=== PATIENT | male | born 1970 | race Caucasian/White ===

== ENCOUNTER 2021-08-29 10:19 | Outpatient (CLI) | payer OTHER, SELFPAY ==
--- NOTE | ~2021-08-29 | XR_ITS ---
XR shoulder RT min 2V DATE: 08/29/2021 10:45 INDICATION: Right shoulder pain. No new injury. TECHNIQUE: 3 views COMPARISON: 09/25/2013 right shoulder FINDINGS: Again noted is a plate and screws along the right humeral shaft, present on 09/25/2013. No fracture or dislocation is detected. Normal alignment at the right acromioclavicular and glenohume ral joints. No abnormal soft tissue calcification is detected. IMPRESSION: No recent fracture or dislocation or bone destruction or abnormal soft tissue calcificati on Plate and screws again noted is a long humeral shaft Reviewed, dictated and finalized at location A. IMPRESSION: No recent fracture or dislocation or bone destruction or abnormal s oft tissue calcification Plate and screws again noted is a long humeral shaft
== END 2021-08-29 10:20 | disposition home or self-care (01) ==
PROVIDERS: PCP Internal Medicine; Visit Provider Orthopaedic Surgery
DX: M25.511 Pain in right shoulder (principal)
CPT/HCPCS: 73030

== ENCOUNTER → 2021-12-23 02:52 | Outpatient (CLI) | payer OTHER, SELFPAY ==
[2021-12-23 13:23] LABS: Influenza A QL RT-PCR Negative (Negative); Influenza B QL RT-PCR Negative (Negative); SARS-CoV-2 RNA PCR Negative
== END ==
PROVIDERS: PCP Internal Medicine; Visit Provider Nurse Practitioner
DX: R68.89 Other general symptoms and signs (principal); Z20.822 Contact with and (suspected) exposure to COVID-19
CPT/HCPCS: 87502; C9803; U0003; U0005

== ENCOUNTER 2023-02-19 10:52 | Day surgery (SDC) | payer OTHER, SELFPAY ==
[2023-02-05 13:55] VITALS: BMI 27.8
[2023-02-19 11:15] VITALS: BP 100/78; PULSE 74; RESP 20; TEMP 36.8; O2SAT 100
--- NOTE | 2023-02-19 11:23 | PM.HPGS ---
History of Present Illness History of Present Illness Consent: Risks, benefits, and alternatives have been discussed and questions answered. Patient agrees to proceed with procedure. Chief complaint: Neoplasm Screening Narrative: Noe Wilkinson is a 52 year old male here for first screening colonoscopy Review of Systems Constitutional: Constitutional: Denies headache(s) and Denies weakness Eyes: Eyes: Denies blurry vision ENT: Reports Normal hearing present, Denies headache(s) and Denies neck pain Cardiovascular: Cardiovascular: Denies chest pain and Denies dyspnea Respiratory: Respiratory: Denies dyspnea Gastrointestinal: Gastrointestinal: Reports no additional gastrointestinal complaints Genitourinary: Genitourinary: Denies dysuria Musculoskeletal: Musculoskeletal: Denies neck pain Integumentary/Breasts: Skin/Breast: Denies dry skin Neurologic: Reports Normal hearing present, Denies headache(s) and Denies weakness Psychiatric: Psychiatric: Denies anxiety Endocrine: Endocrine: Denies change in body appearance Hematologic/Lymphatic: Hematologic/Lymphatic: Denies easy bleeding Allergic/Immunologic: Allergic/Immunologic: Denies urticaria PMFSH Past Medical History Medical History (Updated 02/19/23 @ 11:24 by Tom Rutledge MD) Colon cancer screening History of COVID-19 Seasonal allergies Surgical History Surgical History H/O rhinoplasty History of open reduction and internal fixation (ORIF) procedure History of tonsillectomy and adenoidectomy Family History Family History Father Malignant neoplasm of prostate Family history of malignant neoplasm Patient's father is Family history of malignant neoplasm of urinary bladder Mother Family history of diabetes mellitus in first degree relative Sibling Family history of malignant neoplasm of brain Other Family history of Alzheimer's disease Hypertension Social History Social History Smoking status: Never smoker Alcohol intake: current Drinks per week: 4 Substance use: never Substance use type: does not use Lack of Transportation: No Lack of Food: Never True Current Housing: I Have Housing Concerned About Future Housing: No Difficulty Paying Gas/Electric Bills: No Difficulty Paying for Meds: No Currently Unemployed: No Education: Bachelor's Degree Difficulty w/ Childcare or Family Care: No Living arrangements: with family Occupation/Education: occupation Additional occupation/education comments: Works at [employer] Gender identity (if verbalized by the patient): Male Sexual Orientation (if Verbalized by the Patient): Straight or Heterosexual Spiritual care concerns: No Meds Home Medications and Allergies Home Medications Medication Instructions Recorded Confirmed Type cetirizine 10 mg capsule (Zyrtec) 10 mg PO DAILY 08/29/21 02/19/23 History multivit with minerals-iron 18 1 tablet PO DAILY 02/05/23 02/19/23 History mg-folic ac 400 mcg-vit K 25 mcg tablet (Adults Multivitamin) Allergies Allergy/AdvReac Type Severity Reaction Status Date / Time Penicillins Allergy Unknown Rash Verified 02/19/23 11:18 Exam Const: General: comfortable and no acute distress HENMT: Face/Nose/Sinus: Normal nares present Eyes: General: appearance normal, both eyes and all related structures Neck: Neck: no JVD Resp: Auscultation: clear to auscultation bilaterally Cardio: Rate: regular rate Rhythm: regular rhythm GI: Inspection: non-distended GI Palp: Yes Soft to palpation Skin: General skin exam: normal color Neuro: General: gait normal Speech: normal speech Extrem: General: normal to inspection Psych: Mental Status: mental status grossly normal Assessment and Plan
[2023-02-19] MEDS: LACTATED RINGERS 1,000 ML 150 ML IV CONT (11:24)
--- NOTE | 2023-02-19 11:24 | WPDANESEPPF ---
Anes - Initial Pre Proc Eval Procedure: Operation Date: 02/19/23 12:30 Proposed Procedures p Screening Colonoscopy - Tom Rutledge MD Date/Time: 02/19/23 11:24 Surgeon: Tom Rutledge MD Pre Op Diagnosis: Neoplasm Screening Patient Data Age: 52 Gender: M Height: 1.78 m Weight: 88 kg Allergies Allergy/AdvReac Type Severity Reaction Status Date / Time Penicillins Allergy Unknown Rash Verified 02/19/23 11:18 Home Medications Medication Instructions Recorded Confirmed Type cetirizine 10 mg capsule (Zyrtec) 10 mg PO DAILY 08/29/21 02/19/23 History multivit with minerals-iron 18 1 tablet PO DAILY 02/05/23 02/19/23 History mg-folic ac 400 mcg-vit K 25 mcg tablet (Adults Multivitamin) Patient hx anesthesia problems: none Family hx anesthesia problems: none Results Review: All pre-operative results and documents have been reviewed as part of the pre-operative evaluation. [facility] Past Medical History Medical History Colon cancer screening History of COVID-19 Seasonal allergies Surgical History Surgical History H/O rhinoplasty History of open reduction and internal fixation (ORIF) procedure History of tonsillectomy and adenoidectomy Family History Family History Father Malignant neoplasm of prostate Family history of malignant neoplasm Patient's father is Family history of malignant neoplasm of urinary bladder Mother Family history of diabetes mellitus in first degree relative Sibling Family history of malignant neoplasm of brain Other Family history of Alzheimer's disease Hypertension Social History Social History Smoking status: Never smoker Alcohol intake: current Drinks per week: 4 Substance use: never Substance use type: does not use Lack of Transportation: No Lack of Food: Never True Current Housing: I Have Housing Concerned About Future Housing: No Difficulty Paying Gas/Electric Bills: No Difficulty Paying for Meds: No Currently Unemployed: No Education: Bachelor's Degree Difficulty w/ Childcare or Family Care: No Living arrangements: with family Occupation/Education: occupation Additional occupation/education comments: Works at [employer] Gender identity (if verbalized by the patient): Male Sexual Orientation (if Verbalized by the Patient): Straight or Heterosexual Spiritual care concerns: No Anes - Eval Final PreProcedure Day of Procedure 02/19/23 11:24 Patient weight: overweight Heart: regular rate and rhythm Lungs: clear to auscultation Airway: Mallampati scale class II Neurological: alert and oriented Last oral intake: >/= 8 hours ASA classification: II Emergent: no Anesthetic plan: proceed Anesthesia type and monitoring: general GIVS and standard monitoring Results Review: All pre-operative results and documents have been reviewed as part of the pre-operative evaluation. Informed Consent: The patient's anesthetic plan and its attendant risks and benefits were discussed with the patient/family/POA. Questions were solicited and answers provided to the satisfaction of the patient/family/POA.
[2023-02-19 11:44] VITALS: BP 100/67; PULSE 66; RESP 16; O2SAT 97
[2023-02-19 11:54] VITALS: BP 98/80; PULSE 85; RESP 20; O2SAT 99
[2023-02-19 12:04] VITALS: BP 102/76; PULSE 63; RESP 20; O2SAT 100
--- NOTE | 2023-02-19 12:44 | WPDANESPN ---
Anes - Prog Note Post-Op Date/Time: 02/19/23 12:44 Cardiovascular status: normal Respiratory status: normal Airway patency: baseline Mental status: baseline Post-Op hydration status: normal Vital Signs: Last Vital Signs Temp 36.8 C 02/19/23 11:15 Pulse 63 02/19/23 12:04 Resp 20 02/19/23 12:04 BP 102/76 02/19/23 12:04 Pulse Ox 100 02/19/23 12:04 O2 Del Method Room Air 02/19/23 12:04 Pain Score (VAS): 0 I/O: Intake & Output 02/18/23 02/19/23 02/19/23 23:59 07:59 15:59 Intake Total 350 Balance 350 Patient Feedback: Patient satisfied with anesthetic care.
== END 2023-02-19 12:12 | disposition home or self-care (01) ==
PROVIDERS: PCP Internal Medicine; Visit Provider Internal Medicine Gastroenterology
PROC: 0DJD8ZZ Inspection of Lower Intestinal Tract, Via Natural or Artificial Opening Endoscopic (ICD-10-PCS; CPT 45378; principal; 2023-02-19 12:30)
DX: Z12.11 Encounter for screening for malignant neoplasm of colon (principal)
CPT/HCPCS: 45378